=== PATIENT | female | born 2000 ===

== ENCOUNTER 2024-07-14 14:00 | Inpatient (IN) | payer OTHER ==
[~2024-07-14] VITALS: Ht 149.9 cm; Wt 3.2 kg
[2024-07-25 01:37] VITALS: BP 114/80
[2024-07-25] MEDS ORDERED: PRENATAL + DHA1 EAC1 PO (02:14)
[2024-07-25] MEDS ORDERED: RINGERS SOLUTION,LACTATED 1,000 ML IV SCH (02:15)
[2024-07-25 02:42] LABS: HEMOGLOBIN 12.4 g/dL (12.0-15.00); MEAN CORPUSCULAR HEMOGLOBIN 30.8 pg (27.00-32.0); MEAN CORPUSCULAR HGB CONC 35.4 g/dl (32.0-36.0); PLATELET COUNT 268 K/uL (150-450); RED BLOOD COUNT 4.02 M/uL (4.00-6.00); RED CELL DISTRIBUTION WIDTH 14.4 % (11.5-14.5)
[2024-07-25 02:52] LABS: INR < 0.93; PARTIAL THROMBOPLASTIN TIME 24.9 SECONDS (22.0-34.0)
[2024-07-25 02:55] LABS: ALBUMIN 2.8 gm/dL (3.4-5.0); BILIRUBIN TOTAL 0.24 mg/dL (0.3-1.2); CALCIUM 8.5 mg/dL (8.5-10.1); CREATININE SERUM 0.62 mg/dL (0.55-1.02); GFR 120.37; GLOBULINA 3.5 G/DL (2.4-3.5); POTASSIUM 3.88 mEq/L (3.5-5.1); TOTAL PROTEIN 6.3 gm/dL (6.4-8.2)
[2024-07-25 03:29] VITALS: BP 108/67
[2024-07-25 07:14] VITALS: BP 104/52
[2024-07-25] MEDS ORDERED: OXYTOCIN 20 UNITS/500ML RL PIGGYBAG IV SCH (10:45)
[2024-07-25 11:45] VITALS: BP 93/52
[2024-07-25 15:23] VITALS: BP 111/60
[2024-07-25] MEDS ORDERED: CEFOXITIN SODIUM 2,000 MG VIAL IV ONE (17:33)
[2024-07-25] MEDS ORDERED: CEFOXITIN SODIUM 2,000 MG VIAL IV STA (17:35)
[2024-07-25] MEDS ORDERED: CITRIC ACID/SODIUM CITRATE 30 ML BLIST.PACK PO STA (17:35)
[2024-07-25] MEDS ORDERED: CITRIC ACID/SODIUM CITRATE 30 ML BLIST.PACK PO ONE (17:35)
[2024-07-25] MEDS ORDERED: ERYTHROMYCIN BASE OPHT 1GM EACH TUBE OP ONE (17:48)
[2024-07-25] MEDS ORDERED: OXYTOCIN 10 UNITS/ML VIAL ONE ×3 (17:48→23:38)
[2024-07-25] MEDS ORDERED: KETOROLAC TROMETHAMINE 30 MG VIAL ONE (20:33)
[2024-07-25 22:23] VITALS: BP 119/76
[2024-07-25] MEDS ORDERED: MORPHINE SULFATE 4 MG/ML VIAL IV PRN (22:30)
[2024-07-26 00:20] VITALS: BP 121/78
[2024-07-26] MEDS ORDERED: SIMETHICONE 125 MG CAPSULE PO SCH (01:00)
[2024-07-26 02:09] LABS: HEMATOCRIT 37.1 % (36.0-45.00); HEMOGLOBIN 12.8 g/dL (12.0-15.00); MEAN CELL VOLUME 87.9 fL (80.00-100.00); MEAN CORPUSCULAR HEMOGLOBIN 30.2 pg (27.00-32.0); MEAN CORPUSCULAR HGB CONC 34.4 g/dl (32.0-36.0); PLATELET COUNT 243 K/uL (150-450); RED BLOOD COUNT 4.23 M/uL (4.00-6.00); RED CELL DISTRIBUTION WIDTH 14.5 % (11.5-14.5)
[2024-07-26] MEDS ORDERED: CEFAZOLIN SODIUM 1,000 MG VIAL IV ONE (05:00)
[2024-07-26 05:09] VITALS: BP 109/66
[2024-07-26 06:25] LABS: HEMATOCRIT 32.9 % (36.0-45.00); HEMOGLOBIN 11.7 g/dL (12.0-15.00); MEAN CELL VOLUME 86.3 fL (80.00-100.00); MEAN CORPUSCULAR HEMOGLOBIN 30.8 pg (27.00-32.0); MEAN CORPUSCULAR HGB CONC 35.6 g/dl (32.0-36.0); PLATELET COUNT 242 K/uL (150-450); RED BLOOD COUNT 3.81 M/uL (4.00-6.00); RED CELL DISTRIBUTION WIDTH 14.1 % (11.5-14.5)
[2024-07-26 08:26] VITALS: BP 132/79; O2SAT 100
[2024-07-26] MEDS ORDERED: KETOROLAC TROMETHAMINE 10 MG TABLET PO SCH ×2 (12:00)
[2024-07-26 13:12] VITALS: BP 108/69; O2SAT 100
[2024-07-26 16:00] VITALS: BP 119/80
[2024-07-27] VITALS: BP 105/69
[2024-07-27] MEDS ORDERED: OxyCODONE HCL 5 MG TABLET (ROXICODONE) PO PRN ×2 (06:00→09:00)
[2024-07-27] MEDS ORDERED: OXYCODONE HCL5 MG PO (07:40)
[2024-07-27] MEDS ORDERED: KETO10TA2 PO (07:41)
[2024-07-27 08:46] VITALS: BP 113/74
[2024-07-27] MEDS ORDERED: IBUprofen 400 MG TABLET PO SCH (09:00)
== END 2024-07-27 11:52 | disposition home or self-care (01) | DRG 788 ==
LOC: LDR 07-25 02:05 → O/R 07-25 18:36 → OB/GYN 07-25 21:21
PROVIDERS: Obstetrics & Gynecology Maternal & Fetal Medicine; ADMIT Obstetrics & Gynecology; ATTEND Obstetrics & Gynecology
PROC: 4A1HXCZ Monitoring of Products of Conception, Cardiac Rate, External Approach (ICD-10-PCS; 2024-07-25)
PROC: 10D00Z1 Extraction of Products of Conception, Low, Open Approach (ICD-10-PCS; principal; 2024-07-25 17:45)
DX: O33.8 Maternal care for disproportion of other origin (principal); Z3A.39 39 weeks gestation of pregnancy; Z37.0 Single live birth